=== PATIENT | male | born 1980 | race Caucasian/White ===

== ENCOUNTER 2019-12-11 17:20 | Emergency (ER) | payer OTHER, SELFPAY ==
--- NOTE | ~2019-12-11 | XR_ITS ---
EXAMINATION: XR toe 2nd LT min 2V DATE: 12/11/2019 17:51 INDICATION: Laceration to the second toe of the left foot. TECHNIQUE: Dorsal plantar, lateral and 2 oblique views of the left second toe were obtained. COMPARISON: None FINDINGS: Alignment is normal. No fracture. Joint spaces are normal. Soft tissues are unremarkable. No radiopaq ue foreign bodies. IMPRESSION: No osseous abnormality or radiopaque foreign bodies. Reviewed, dictated and finalized at location A.
[2019-12-11 17:38] VITALS: BP 138/70; PULSE 76; RESP 16; TEMP 36.9; O2SAT 97
--- NOTE | 2019-12-11 17:48 | ED.GENADULT ---
HPI - General Adult General Chief complaint: Wound/Laceration Stated complaint: laceration left toe History of Present Illness HPI narrative: Patient was cutting wood and hit his foot. Per patient he had his shoes on but it cut through his shoe . patient teatnus is not up to date and will need a shot. Related Data Home Medications Medication Instructions Recorded Confirmed bupropion HCl (smoking deter) mg PO 12/11/19 testosterone cypionate mg 12/11/19 Allergies Allergy/AdvReac Type Severity Reaction Status Date / Time No Known Allergies Allergy Unverified 05/08/19 16:18 Review of Systems Review of Systems: Narrative: CONSTITUTIONAL: Denies fever, chills, or sweats. EYES: Denies visual changes, redness, or discharge. ENT: Denies rhinorrhea, congestion, sore throat, or otalgia. CARDIOVASCULAR:Denies chest pain, palpitations, or edema. RESPIRATORY: Denies cough or dyspnea. GASTROINTESTINAL: Denies abdominal pain, nausea, vomiting, or diarrhea. GENITOURINARY: Denies dysuria or hematuria. SKIN:[Denies rash or itching.2nd toe laceration MUSCULOSKELETAL:Denies back pain, joint pain, or myalgia. NEUROLOGIC: Denies headache, numbness, or weakness. PSYCHIATRIC:Denies anxiety or depression PMFSH Comments At time as signature, I have reviewed and agree with nursing past medical, social, surgical and family history. Please see nursing chart for further information. There is no relevant family history pertinent to the presenting complaint. Exam Narrative: Exam Narrative: GENERAL:Well-appearing, well-nourished, and in no acute distress. HEAD:Normocephalic, atraumatic. EYES: PERRLA and EOMI. ENT: Nares clear, no rhinorrhea or epistaxis. Mucous membranes moist. NECK: Supple. CHEST: Clear to auscultation. No respiratory distress. HEART: Regular rate and rhythm. No murmur heard. Normal peripheral pulses. ABDOMEN: Soft, nontender, nondistended, normal active bowel sounds. EXTREMITIES: Normal range of motion. No edema.2 toe laceration 3 cm. SKIN: Warm, dry, no rash. NEURO: No focal deficits. Alert and oriented x3. Course Vital Signs Vital signs: Vital Signs Temperature 98.4 F 12/11/19 17:38 Pulse Rate 76 12/11/19 17:38 Respiratory Rate 16 12/11/19 17:38 Blood Pressure 138/70 12/11/19 17:38 Pulse Oximetry 97 12/11/19 17:38 Temperature 98.4 F 12/11/19 17:38 Pulse Rate 76 12/11/19 17:38 Respiratory Rate 16 12/11/19 17:38 Blood Pressure 138/70 12/11/19 17:38 Pulse Oximetry 97 12/11/19 17:38 Procedures Laceration Laceration 1: Date: 12/11/19 Time: 09:29 Site: lower extremity (left 2nd toe) Local Anesthetic: lidocaine 1% ====== Skin Level ====== Size (cm): 6-0 Number of sutures: 6 Technique: simple, interrupted ====== Subcutaneous Layer ====== ====== Muscle Layer ====== ====== Tendon Layer ====== Medical Decision Making Vital Signs Vital Signs: Vital Signs Temperature 98.4 F 12/11/19 17:38 Pulse Rate 76 12/11/19 17:38 Respiratory Rate 16 12/11/19 17:38 Blood Pressure 138/70 12/11/19 17:38 Pulse Oximetry 97 12/11/19 17:38 Temperature 98.4 F 12/11/19 17:38 Pulse Rate 76 12/11/19 17:38 Respiratory Rate 16 12/11/19 17:38 Blood Pressure 138/70 12/11/19 17:38 Pulse Oximetry 97 12/11/19 17:38 Discharge Plan Discharge Clinical Impression: Laceration Patient Disposition: Home, Self-Care Condition: Stable Instructions: Antibiotic Form, Cephalexin (By mouth), Laceration (ED) Additional Instructions: Keep the area clean and dry No continuous water contact like dishes or swimming You may bathe and wash you hair caution with hair products or lotions Antibiotic ointment to the area 3-4 times a day dressing of choice watch for infection--redness, swelling, drainage follow up with PCP for suture/staple in removal 10-14 days recheck with PCP if further
[2019-12-11] MEDS: TETANUS,DIPHTHERIA,AC PERTUSSIS ADULT (0.5 ML) BOOSTRIX IM (18:13)
== END 2019-12-11 18:57 | disposition home or self-care (01) ==
PROVIDERS: Emergency Provider Nurse Practitioner Family; PCP Internal Medicine
DX: S91.115A Laceration without foreign body of left lesser toe(s) without damage to nail, initial encounter (principal); W27.0XXA Contact with workbench tool, initial encounter; Z23 Encounter for immunization
CPT/HCPCS: 12002; 73660; 90471; 90715; 99213; G0463

== ENCOUNTER 2019-12-25 09:27 | Emergency (ER) | payer OTHER, SELFPAY ==
[2019-12-25 10:02] VITALS: BP 134/71; PULSE 73; RESP 16; TEMP 36.6; O2SAT 97
--- NOTE | 2019-12-25 10:51 | ED.GENADULT ---
HPI - General Adult General Chief complaint: Wound/Laceration Stated complaint: stitches removal Time Seen by Provider: 12/25/19 10:51 Source: patient and RN notes reviewed Mode of arrival: ambulatory Limitations: no limitations History of Present Illness HPI narrative: 39-year-old male presents to have sutures removed from dorsal LT 2nd toe in place for 2 weeks. Healing wound to LT 2nd toe with 6 interrupted black sutures. No concern for infection of wound. No tenderness, erythema, or swelling to area. No fever or chills. No drainage. No streaking. Cleve has been following recent discharge instructions. Denies nausea and vomiting. Remains active. Immunizations up-to-date, received 2 weeks ago per Cleve at last visit. Some parts of this dictation were generated by voice recognition software and may contain typographical and/or grammatical inaccuracies. Related Data Home Medications Medication Instructions Recorded Confirmed bupropion HCl (smoking deter) mg PO 12/11/19 testosterone cypionate mg 12/11/19 Allergies Allergy/AdvReac Type Severity Reaction Status Date / Time No Known Allergies Allergy Unverified 05/08/19 16:18 Review of Systems Review of Systems: Narrative: CONSTITUTIONAL: Denies fever, chills, sweats. EYES: Denies visual changes, redness, discharge. ENT: Denies rhinorrhea, congestion, sore throat, otalgia. CARDIOVASCULAR: Denies chest pain, palpitations, edema. RESPIRATORY: Denies dyspnea, wheezing, cough. GASTROINTESTINAL: Denies abdominal pain, nausea, vomiting, diarrhea. GENITOURINARY: Denies dysuria, hematuria, abnormal discharge. SKIN: Denies rash or itching. Complains of needing sutures removed from dorsal left 2nd toe. MUSCULOSKELETAL: Denies acute back pain, joint pain, or myalgia. NEUROLOGIC: Denies numbness or focal weakness. PSYCHIATRIC: Denies anxiety or depression. All other systems reviewed are negative, except as documented in HPI and below. [facility] Past Medical History Medical History (Updated 12/25/19 @ 18:37 by JOAN Gale) Depression Surgical History Surgical History (Updated 12/25/19 @ 18:37 by JOAN Gale) No significant past surgical history Family History Family History (Updated 12/25/19 @ 18:38 by JOAN Gale) Father Alive and well Mother Alive and well Social History Social History (Updated 12/25/19 @ 18:39 by JOAN Gale) Smoking status: Current some day smoker Tobacco type: cigars Second hand tobacco smoke exposure: No Alcohol intake: current Substance use: never Living arrangements: with family Occupation/Education: occupation Gender identity (if verbalized by the patient): Male Comments At time of signature, agree with nurse past medical, surgical, social, and family history. There is no relevant family history pertinent to the presenting complaint. Exam Narrative: Exam Narrative: GENERAL: This is a well-nourished, well-developed patient, in no apparent distress. Talks in full sentences and ambulates with steady gait without dyspnea. HEAD: Atraumatic. Normocephalic. No temporal or scalp tenderness. EYES: PERRL. Sclera clear/white. Vision is grossly intact. NECK: Neck supple, non-tender without lymphadenopathy, masses or thyromegaly. CARDIOVASCULAR: Regular rate and rhythm without murmurs, gallops, or rubs. RESPIRATORY: Clear to auscultation. Breath sounds equal bilaterally. No wheezes, rales, or rhonchi. SKIN: warm, intact with no suspicious lesions or rash, good texture and turgor. NEURO: awake, alert, and oriented to person, place and time. There were no obvious focal neurologic abnormalities. EXTREMITIES: No clubbing, cyanosis, or edema. Removed 6 black interrupted sutures from LT dorsal toe without difficult. No significant erythema or concern for abscess or infection. No fluctuate. No drainage, swelling, or warmth. Wound appropriate for stated age. Normal cap
== END 2019-12-25 11:13 | disposition home or self-care (01) ==
PROVIDERS: Emergency Provider Nurse Practitioner Family
DX: Z48.02 Encounter for removal of sutures (principal); F32.9 Major depressive disorder, single episode, unspecified; F17.290 Nicotine dependence, other tobacco product, uncomplicated; R03.0 Elevated blood-pressure reading, without diagnosis of hypertension
CPT/HCPCS: 99211; G0463

== ENCOUNTER 2025-08-06 08:44 | Emergency (ER) | payer OTHER, SELFPAY ==
--- OUTSIDE RECORDS SUMMARY | 2025-08-06 08:48 | XMS_ITS | Clinical Summary ---
Author Organization [employer] Address [address] [place] [address] Care Team Providers Care Air Control Electronics Operator Name Role Phone Pcp, Shannan Primary Care Provider Social History Tobacco Use Types Packs/Day Years Used Date Smoking Tobacco: Never Assessed Sex and Gender Information Value Date Recorded Sex Assigned at Not on file Legal Sex Male 1:08 PM EDT Gender Identity Not on file Sexual Orientation Not on file Plan of Treatment Not on file Medical Devices Not on file Care Teams Air Control Electronics Operator Relationship Specialty Start Date End Date Shannan Jules PCP - General Family Medicine 09/27/21
--- OUTSIDE RECORDS SUMMARY | 2025-08-06 08:48 | XMS_ITS | Clinical Summary ---
Author Organization [facility] Address [address] [place] [place] [address] Care Team Providers Care Manager Harbor Name Role Phone Unavailable Primary Care Provider Unavailabl e Source Comments [facility],non-owned Affiliates and Associated Physician Practices is amultiple site organization consisting of ambulatory clinics and hospital sitesin [place], [place], [place] and [place]. This disclosure is being madepursuant to the Care Everywhere program and may not contain all information available regarding this patient. Last updated 18.[facility] Allergies No known active allergies Medications * Be aware that medications may not be up to date on this document. Alwaysverify current medications with the patient. 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 Gender Identity Not on file Sexual Orientation Not on file Last Filed Vital Signs Vital Sign Reading Time Taken Comments Blood Pressure 124/78 08/04/2019 12:01 PM RETIREMENT VILLAGE MANAGER Pulse 93 08/04/2019 12:01 PM RETIREMENT VILLAGE MANAGER Temperature 37.8 C (100.1 F) 08/04/2019 12:01 PM RETIREMENT VILLAGE MANAGER Respiratory Rate 18 08/04/2019 12:01 PM RETIREMENT VILLAGE MANAGER Oxygen Saturation 92% 08/04/2019 12:01 PM RETIREMENT VILLAGE MANAGER Inhaled Oxygen Concentration - - Weight 95.3 kg (210 lb) 08/04/2019 12:01 PM RETIREMENT VILLAGE MANAGER Height 182.9 cm (6') 08/04/2019 12:01 PM RETIREMENT VILLAGE MANAGER Body Mass Index 28.48 08/04/2019 12:01 PM RETIREMENT VILLAGE MANAGER Plan of Treatment Health Maintenance Due Date Last Done Comments COLOGUARD (AGES 45-75) - COL ON CA SCREENING 1980 COLON MONITORING 1980 COLONOSCOPY - COLON CA SCREENING 1980 CT COLONOGRAPHY - COLON CA SCREENING 1980 Colorectal Cancer Screening 1980 FIT - COLON CA SCREENING 1980 FLEX SIG - COLON CA SCREENING 1980 LIPID TESTING 1980 HIV SCREENING 1995 HEPATITIS C SCREENING 05/25/1998 DTAP/TDAP/TD VACCINES (1 - Tdap) 1999 HEPATITIS B VACCINE (1 of 3 - 19+ 3-dose series) 1999 HPV VACCINE (1 - 3-dose SCDM series) 2007 DEPRESSION SCREENING 08/24/2024 COVID-19 VACCINE (1 - 2024-2 6 season) 2025 INFLUENZA VACCINE (#1) 2025 ZOSTER VACCINE (1 of 2) 2030 HIB VACCINE Aged Out No longer eligi ble based on patient's age to complete this topic MENINGOCOCCAL (Group B) VACC INE SHARED DECISION-MAKING Aged Out No longer eligibl e based on patient's age to complete this topic MENINGOCOCCAL GROUPS A/C/Y/W VACCINE Aged Out No longer eligible b ased on patient's age to complete this topic PNEUMOCOCCAL VACCINE Aged Out No long er eligible based on patient's age to complete this topic Insurance [facility]
--- OUTSIDE RECORDS SUMMARY | 2025-08-06 08:48 | XMS_ITS | Clinical Summary ---
Author Organization [facility] Address [facility] [place] [address] Care Team Providers Care Security Dispatcher Name Role Phone Non-Staff, Provider Primary Care Provider Lizzeth perrin Allergies No known active allergies Social History Tobacco Use Types Packs/Day Years Used Date Smoking Tobacco: Never Smokeless Tobacco: Never Tobacco Cessation:Counseling Given: Not Answered Sex and Gender Information Value Date Recorded Sex Assigned at Male 02/16/2025 2:43 PM CDT Legal Sex Male 2:40 PM CDT Gender Identity Not on file Sexual Orientation Not on file Last Filed Vital Signs Vital Sign Reading Time Taken Comments Blood Pressure 134/84 02/16/2025 7:15 PM CDT Pulse 56 02/16/2025 5:56 PM CDT Temperature 36.8 C (98.3 F) 02/16/2025 2:48 PM CDT Respiratory Rate 17 02/16/2025 5:56 PM CDT Oxygen Saturation 98% 02/16/2025 5:56 PM CDT Inhaled Oxygen Concentration - - Weight 97.5 kg (215 lb) 02/16/2025 2:48 PM CDT Height 182.9 cm (6') 02/16/2025 2:48 PM CDT Body Mass Index 29.16 02/16/2025 2:48 PM CDT Plan of Treatment Health Maintenance Due Date Last Done Comments Colorectal Cancer Screening Colonoscopy (10 Years) 1980 Annual Physical 1983 Hepatitis C 1998 DTaP, Tdap and Td Vaccines ( 1 - Tdap) 1999 Hepatitis B Vaccines (1 of 3 - 19+ 3-dose series) 1999 HPV Vaccines (1 - 3-dose SCD M series) 2007 COVID-19 Vaccine (2024-2 6 season) 2025 Influenza Adult (#1) 2025 05/25/2020, 08/04/2017 Hepatitis A Vaccines Aged Out No long er eligible based on patient's age to complete this topic Meningococcal B Vaccine Aged Out No l onger eligible based on patient's age to complete this topic Meningococcal Vaccine Aged Out No gricelda laurita eligible based on patient's age to complete this topic Pneumococcal Vaccine: Pediatrics (0 to 5 Years) and At-Risk Patients (6 to 49 Years) Aged Out No longer eligible b ased on patient's age to complete this topic RSV Immunizations Under 20 Months Aged Out No longer eligible b ased on patient's age to complete this topic Insurance [facility] Care Teams Security Dispatcher Relationship Specialty Start Date End Date Non-Staff, Provider PCP - General UNKNOWN PHYSICIAN SPECIALTY 02/16/25
[2025-08-06 08:57] VITALS: BP 143/82; PULSE 81; RESP 18; TEMP 37; O2SAT 96
--- NOTE | 2025-08-06 09:04 | ED.URI ---
HPI - URI/Sore Throat General Chief Complaint: Upper Respiratory Infection Stated Complaint: Cough patient presents to the [facility] with complaints nasal congestion, nasal drainage, cough, chest congestion headache pressure in ears, fatigue that began 2 days ago. Patient reports using DayQuil, NyQuil, and cough drops with minimal relief of symptoms. No known sick contacts. Denies fever, chills, body aches, sore throat, difficulty swallowing, dizziness, shortness of breath, nausea, vomiting, diarrhea. Related Data Home Medications ?Medication ?Instructions ?Recorded ?Confirmed ?Last Taken ?Type bupropion HCl (smoking deter) 150 mg PO 12/11/19 Unknown History mg tablet,12 hr sustained-release(smoking deterrent) testosterone cypionate 200 mg/mL mg 12/11/19 Unknown History intramuscular oil Allergies Allergy/AdvReac Type Severity Reaction Status Date / Time No Known Allergies Allergy Verified 08/06/25 08:51 Review of Systems Constitutional: Constitutional: Reports as per HPI, Denies chills, Reports fatigue, Denies fever(s) and Denies weakness Eyes: Eyes: Reports no additional eye complaints ENT: Reports as per HPI, Denies vertigo, Denies dizziness, Reports nasal congestion and Denies sore throat Cardiovascular: Cardiovascular: Reports no additional cardiovascular complaints Respiratory: Respiratory: Reports as per HPI, Reports chest congestion, Reports cough, Denies dyspnea and Denies wheezing Gastrointestinal: Gastrointestinal: Reports no additional gastrointestinal complaints Genitourinary: Genitourinary: Reports no additional male genitourinary complaints Musculoskeletal: Musculoskeletal: Reports as per HPI, Denies back pain and Denies myalgias Integumentary/Breasts: Skin/Breast: Reports as per HPI, Denies pruritus, Denies erythema and Denies rash Neurologic: Reports as per HPI, Denies vertigo, Denies dizziness, Reports headache(s) and Denies weakness Psychiatric: Psychiatric: Reports no additional psychiatric complaints Endocrine: Endocrine: Reports no additional endocrine complaints Hematologic/Lymphatic: Hematologic/Lymphatic: Reports no additional hematologic/lymphatic complaints Allergic/Immunologic: Allergic/Immunologic: Reports no additional allergic/immunologic complaints [facility] Past Medical History Medical History (Updated 08/06/25 @ 09:18 by Dianne Cuadra APRN, SUPERVISOR GARAGE-C) Depression Surgical History Surgical History (Updated 12/25/19 @ 18:37 by JOAN Gale) No significant past surgical history Family History Family History (Updated 12/25/19 @ 18:38 by JOAN Gale) Father Alive and well Mother Alive and well Social History Social History (Updated 12/25/19 @ 18:39 by JOAN Gale) Smoking status: Current some day smoker Tobacco type: cigars Second hand tobacco smoke exposure: No Alcohol intake: current Substance use: never Living arrangements: with family Occupation/Education: occupation Gender identity (if verbalized by the patient): Male Exam Const: General: healthy appearing and no acute distress Nutritional Appearance: well nourished Orientation/consciousness: patient oriented x3 Limitations: no limitations HENMT: Head: normal to inspection Ears: external ears normal and TM's normal bilaterally Face/Nose/Sinus: Normal external nose present, Normal nares present and Nasal discharge present Face and sinus: normal facial exam and sinuses nontender Mouth: Yes Normal oral and palatal mucosa present, Yes lip normal and Yes moist mucous membranes Throat: posterior oropharynx abnormal ( Mild erythema with no edema or exudate) Other: congestion noted Neck: Neck: normal visual inspection and no lymphadenopathy Resp: Effort & Inspection: normal respiratory effort Auscultation: clear to auscultation bilaterally Other: congested cough noted Cardio: Rate: regular rate Rhythm: regular rhythm Skin: General skin exam: normal color Rashes: no rashes Wounds: no wounds Neuro: General: patient oriented x3 Speech: normal speech Gait exam (Neuro): Normal gait present Psych: Mental Status: mental status grossly normal Affect: normal affect Attitude: cooperative Course Course Level of Care: Express Care Visit Vital Signs Vital signs: Vital Signs Temperature 98.6 F 08/06/25 08:57 Pulse Rate 81 08/06/25 08:57 Respiratory Rate 18 08/06/25 08:57 Blood Pressure 143/82 H 08/06/25 08:57 Pulse Oximetry 96 08/06/25 08:57 Oxygen Delivery Room Air 08/06/25 08:57 Temperature 98.6 F 08/06/25 08:57 Pulse Rate 81 08/06/25 08:57 Respiratory Rate 18 08/06/25 08:57 Blood Pressure 143/82 H 08/06/25 08:57 Pulse Oximetry 96 08/06/25 08:57 Oxygen Delivery Room Air 08/06/25 08:57 MDM MDM Narrative Medical decision making narrative: flu and COVID testing negative. Likely viral in nature The patient was evaluated by myself in the express care. History is obtained from patient who is an independent historian and physical exam was performed. Available medical records were reviewed at this time. Exam findings show no acute concerns or changes; patient is non-toxic appearing and is in no distress. Patient is appropriate for outpatient treatment and follow-up. I have evaluated and discussed social determinants of health with the patient that could potentially impact subsequent diagnosis and treatment plans. Differential diagnosis and treatment plan were discussed with the patient. Patient agrees with discussion and after shared medical decision making agrees with plan of care. All questions were answered to the patient's satisfaction. Differential Diagnosis Differential Diagnosis: sinusitis, upper respiratory infection, pharyngitis, bronchitis Medical Records I have reviewed the following patient records and this information was taken into consideration when formulating the assessment and plan.: previous labs, previous ER visits, previous hospitalizations and previous clinic visits Lab Data [facility] Lab Attestation statement: I personally reviewed the patient's lab results. Discharge Plan Discharge Clinical Impression: Upper respiratory infection Patient Disposition: Home Condition: Stable Instructions: Antibiotic Form, Upper Respiratory Infection (ED), Cold Symptoms (ED) Additional Instructions: Viral illness may last between 7-12days; antibiotic is NOT recommended at this time. Recommend antihistamine such as Benadryl at night time and Claritin/Zyrtec/Shannan during the day. Also using steroid nasal spray like Flonase can help with symptoms and congestion. Using sudafed for significant congestion will also give some relief. Cough syrup may cause drowsiness; avoid driving or take it at night time. Use inhaler as needed for cough, wheezing, shortness of breath or chest tightness. Also, recommend symptomatic treatment includes: rest, fluids, increase humidity of the air at home. Recommend Acetaminophen or nonsteroidal anti-inflammatory agents(NSAIDs) as directed in the bottle to reduce fever and/pain/headache. Avoid smoking/second-hand smoke. Limit visits to areas with large crowds. Frequent hand washing or hand rn gyn is one of the best ways to prevent spread of infection. Please schedule a followup visit with your personal physician for further evaluation and treatment within 3-5days. Including recheck and discussion of your blood pressure. If your symptoms persist, change or worsen significantly before you can contact your personal physician then please, without delay, go to the emergency department for further evaluation. Patient Language: Hong Konger Prescriptions: New promethazine-DM 6.25-15 mg/5 mL syrup 5 ml PO Q4-6H PRN (Reason: cough) Qty: 118 0RF benzonatate 200 mg capsule 200 mg PO TID PRN (Reason: cough) Qty: 30 0RF methylprednisolone [Medrol (Sha)] 4 mg tablets,dose pack See Rx Instructions .ROUTE .COMPLEX Qty: 21 0RF Rx Instructions: for 6 days No Action testosterone cypionate 200 mg/mL oil bupropion HCl (smoking deter) 150 mg tablet extended release 12 hr PO Follow-up/Referrals: Brenna,Asad Stewart [Other] Stand Alone Forms: Work/School Release IP Time of Disposition: 09:19
[2025-08-06 09:21] LABS: EDCOVIDSCREEN Negative (Negative); EDINFLUASCREEN Negative (Negative); EDINFLUBSCREEN Negative (Negative)
== END 2025-08-06 09:20 | disposition home or self-care (01) ==
PROVIDERS: Emergency Provider Nurse Practitioner Family
DX: J06.9 Acute upper respiratory infection, unspecified (principal); Z20.822 Contact with and (suspected) exposure to COVID-19; F17.290 Nicotine dependence, other tobacco product, uncomplicated; F32.A Depression, unspecified
CPT/HCPCS: 87426; 87804; 99213; G0463